=== PATIENT | male | born 1965 | race African-American/Black ===

== ENCOUNTER 2017-08-14 20:01 | Emergency (ER) | payer MEDICARE | END 2017-08-14 23:00 | disposition home or self-care (01) | LOC: D.ER 20:01 | DX: R60.0 Localized edema (principal); R04.0 Epistaxis; S02.2XXA Fracture of nasal bones, initial encounter for closed fracture; Y04.2XXA Assault by strike against or bumped into by another person, initial encounter; Y93.89 Activity, other specified; Y92.019 Unspecified place in single-family (private) house as the place of occurrence of the external cause ==